=== PATIENT | female | born 1985 | race Caucasian/White ===

== ENCOUNTER 2018-04-20 19:31 | Emergency (ER) | payer OTHER ==
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
[2018-04-21 01:30] VITALS: BP 106/65
== END 2018-04-21 01:30 | disposition home or self-care (01) ==
LOC: ER 19:31
DX: M54.5 Low back pain (principal); V49.50XA Passenger injured in collision with unspecified motor vehicles in traffic accident, initial encounter; F17.200 Nicotine dependence, unspecified, uncomplicated
CPT/HCPCS: 72110; 99283